=== PATIENT | male | born 1950 | race Caucasian/White ===

== ENCOUNTER 2019-05-25 06:17 | Inpatient (IN) | payer OTHER ==
[~2019-05-25] VITALS: Ht 185.4 cm; Wt 95.3 kg
[2019-05-25 06:22] VITALS: BP 98/62
--- NOTE | 2019-05-25 06:22 | NUR ---
PT TAKEN TO BED 5
--- NOTE | 2019-05-25 06:27 | NUR ---
Dr. Pickens evaluating patient.
--- NOTE | 2019-05-25 06:30 | NUR ---
68 Y/O M PRESENTED TO ED WITH C/O DIFFICULTY URINATING SINCE LAST NIGHT. 08/18 PAIN. PER PT " I TOOK MY TERAZOSIN AND HAD SOME BACARDI TOO. I THINK THAT WHAT CAUSED THIS." BLADDER MILDLY DISTENDED. PT FEELS URGE TO VOID BUT UNABLE TO. PT REPORTED HEMATURIA. ERMD NOTIFIED. WILL CONTINUE TO MONITOR.
--- NOTE | 2019-05-25 06:40 | NUR ---
17F NGUYEN INSERTED WITH STERILE TECHNIQUE. DURING INSERTION RESISTANCE WAS FELT. RED TINGED URINE NOTED. BLOOD NOTED IN CATHERER. NGUYEN IRRIGATED, 2 SMALL BLOOD CLOTS CAME OUT. ERMD MADE AWARE.
--- NOTE | 2019-05-25 07:15 | NUR ---
REPORT GIVEN TO MAYA SCHUMACHER. TRANSFER OF CARE AT THIS TIME.
[2019-05-25] MEDS ORDERED: KETOROLAC 30 MG/ML VIAL IVP ONE (07:25)
[2019-05-25] MEDS ORDERED: LIDOCAINE VISCOUS 2% 20 ML UDC PO ONE (07:30)
[2019-05-25] MEDS ORDERED: LIDOCAINE VISCOUS 2% 20 ML UDC ONE (07:34)
[2019-05-25 07:44] LABS: EOSINOPHILS # (AUTO) 0.5 K/uL (0-0.4); EOSINOPHILS % (AUTO) 10.6 % (0.0-4.0); HEMOGLOBIN 14.9 g/dL (12.0-18.0); LYMPHOCYTES # (AUTO) 1.1 K/uL (2.0-11.5); LYMPHOCYTES % (AUTO) 23.6 % (20.5-51.1); MEAN CORPUSCULAR HEMOGLOBIN 31 pg (27-31); MEAN CORPUSCULAR HGB CONC 33 g/dL (33-37); MEAN CORPUSCULAR VOLUME 92.5 fL (80-94); MONOCYTES # (AUTO) 0.3 K/uL (0.8-1.0); MONOCYTES % (AUTO) 7.5 % (1.7-9.3); NEUTROPHILS # (AUTO) 2.6 K/uL (1.8-7.7); NEUTROPHILS % (AUTO) 57.3 % (42.2-75.2); PLATELET COUNT (AUTO) 196 K/uL (140-450); RED BLOOD CELL COUNT(AUTO) 4.86 MIL/uL (4.20-6.10); RED CELL DISTRIBUTION WIDTH 14.3 % (11.6-13.7); WHITE BLOOD COUNT (AUTO) 4.6 K/uL (4.8-10.8)
--- NOTE | 2019-05-25 07:46 | NUR ---
INSERTED NGUYEN USING THE COUDER N16 FR USING LIDOCAINE ORDERED. NO URINE RETURN . SLIGHT BLEEDING FROM THE PENILE REGION AFTER INSERTION OF THE NGUYEN CATHETER. GAVE TORADOL IVP ORDERED. PT STILL C/O PAIN. WILL CONTINUE TO MONITOR PT.
[2019-05-25 07:49] LABS: APPEARANCE,URINE CLOUDY (CLEAR); BILIRUBIN,URINE NEGATIVE (NEGATIVE); BLOOD, URINE 3+ (NEGATIVE); COLOR,URINE AMBER (YELLOW); LEUKOCYTE ESTERASE ,URINE NEGATIVE (NEGATIVE); NITRITE, URINE NEGATIVE (NEGATIVE); PH,URINE 5.5 (5.0-9.0); UGLUCOSE NEGATIVE (NEGATIVE)
[2019-05-25] MEDS ORDERED: METOCLOPRAMIDE 10 MG/2 ML INJ VIAL IVP ONE (07:55)
[2019-05-25] MEDS ORDERED: MORPHINE SULFATE 4 MG/ML SYR IVP ONE (07:55)
--- NOTE | 2019-05-25 08:09 | NUR ---
coude bell catheter removed. Dr. Daniel ordering bell catheter to be re-inserted.
[2019-05-25 08:10] LABS: ANION GAP 12.9 (8-16); CARBON DIOXIDE 25.8 mmol/L (21-32); POTASSIUM 3.7 mmol/L (3.5-5.1)
[2019-05-25] MEDS ORDERED: LIDOCAINE 2% 100 MG/5 ML UJET TP ONE (08:10)
[2019-05-25] MEDS ORDERED: LIDOCAINE 2% 100 MG/5 ML UJET TP SCH (08:10)
[2019-05-25 08:13] LABS: PROTHROMBIN TIME 11.2 secs (10.8-13.4)
[2019-05-25 08:15] LABS: ALBUMIN 3.9 g/dL (3.4-5.0); TOTAL BILIRUBIN 0.4 mg/dL (0.0-1.0)
[2019-05-25 08:35] LABS: RBC,URINE TOO NUMEROUS TO COUN /HPF (0-5); WBC,URINE 0-5 /HPF (0-5)
--- NOTE | 2019-05-25 08:36 | NUR ---
INSERTED NGUYEN CATHETER ORDERED WITH LIDOCAINE. SMALL AMOUT OF BLOODY VISCOUS OUTPUT RECEIVED IN THE TUBE. PT STATES PAIN WHILE PEEING. STARTED [address] NOYOLA MADE AWARE. PT WENT WITH CT. WILL CONTINUE TO MONITOR PT.
[2019-05-25 09:20] LABS: MAGNESIUM 1.7 mg/dL (1.8-2.4)
--- NOTE | 2019-05-25 09:25 | NUR ---
INSERTED 14 FR CAUDE NGUYEN , RETRURN OF THE URINE 200 ML AT THIS TIME. PT STATES FEELING COMFORTABLE, EASE WITH PAIN. URINE SAMPLE COLLECTED FOR UDS. WILL CONTINUE TO MONITOR PT.
--- NOTE | 2019-05-25 09:41 | NUR ---
Dr. Daniel re-evaluating patient at bedside.
[2019-05-25 09:59] LABS: BARBITURATE, URINE NEG. ng/ml (NEG <=200); BENZODIAZEPINE, URINE NEG. ng/mL (NEG <=200); CANNABINOID, URINE NEG. ng/mL (NEG <=50); COCAINE, URINE NEG. ng/mL (NEG <=300); OPIATE, URINE NEG. ng/mL (NEG <=2000); PHENCYCLIDINE SCREEN,URINE NEG. ng/mL (NEG <=25)
--- NOTE | 2019-05-25 10:08 | NUR ---
PT LYING COMFORTABLY IN HIS BED, TOLERABLE PAIN. WILL CONTINUE TO MONITOR PT.
--- NOTE | 2019-05-25 10:28 | NUR ---
CHECKED ON PT. RESTING COMFORTABLY IN HIS BED.
[2019-05-25] MEDS ORDERED: FAMOTIDINE 20 MG/2 ML VIAL IV PRN (10:55)
[2019-05-25] MEDS ORDERED: HYDROcodone/APAP 7.5/325 MG 1 TAB PO PRN (10:55)
[2019-05-25] MEDS ORDERED: ONDANSETRON 4 MG/2 ML VIAL IM/IVP PRN (10:55)
[2019-05-25] MEDS ORDERED: ACETAMINOPHEN 325 MG TAB PO PRN (10:55)
[2019-05-25] MEDS ORDERED: TERA1CAP7 PO ×2 (10:57→13:49)
--- NOTE | 2019-05-25 10:58 | NUR ---
Pt states he takes Terazosin but does not recall the dosages but states he will find out and let us know as soon as possible.
[2019-05-25] MEDS ORDERED: DOCUSATE SODIUM 100 MG GELCAP PO PRN (11:00)
[2019-05-25] MEDS ORDERED: MEDICATION REC. PHARMACY CONS. 1 EA MISC MC PRN (11:05)
[2019-05-25] MEDS ORDERED: MAG SULF 2000 MG/WATER PREMIX 50 ML IV ONE (11:05)
[2019-05-25 11:35] VITALS: BP 119/73
--- NOTE | 2019-05-25 11:35 | NUR ---
RECEIVED BEDSIDE REPORT FROM COLLEGE PRESIDENT ENDY. PT STABLE, AWAKE, ALERT AND ORIENTED X4. NO SIGNS OF DISTRESS NOTED. DENIES PAIN OR SOB. PT AMBULATED FROM THE GURNEY TO THE BED WITH STEADY GAIT. NO REDNESS, SWELLING, OR INFLAMMATION NOTED ON IV SITE. CALL NEGRETE WITHIN REACH. BED IN LOWEST POSITION. SAFETY MEASURES IN PLACE. PLAN OF CARE REVIEWED.
--- NOTE | 2019-05-25 11:41 | NUR ---
Patient will be admitted to care of DR. PIKE. Admited to [facility] FLOOR. Will go to room 119A. Belongings list completed. Report to MAYA VIDAL. PT SATBLE AT THE TIME OF TRANSFER.
[2019-05-25] MEDS ORDERED: TAMSULOSIN 0.4 MG CAP PO SCH (12:30)
[2019-05-25 13:10] LABS: FREE T4 (FREE THYROXINE) 0.92 ng/dL (0.76-1.46); PHOSPHORUS 2.8 mg/dL (2.5-4.9); THYROID STIMULATING HORMONE 5.86 uIU/mL (0.34-3.74)
--- NOTE | 2019-05-25 13:20 | NUR ---
ADMINISTERED SCHEDULED MEDICATIONS, PT TOLERATED WELL. NO OTHER NEEDS AT THIS TIME.
[2019-05-25] MEDS ORDERED: FINASTERIDE 5 MG TAB PO SCH (14:00)
--- NOTE | 2019-05-25 14:24 | NUR ---
ADMINISTERED SCHEDULED PROSCAR. DISCONTINUED NGUYEN CATHETER PER MD ORDER. 300ML OF DARK RED URINE NOTED. PT TOLERATED WELL. NO OTHER NEEDS AT THIS TIME. FAMILY AT THE BEDSIDE.
[2019-05-25] MEDS ORDERED: MORPHINE SULFATE 2 MG/ML SYR IVP PRN (15:10)
[2019-05-25 16:00] VITALS: BP 121/77
--- NOTE | 2019-05-25 16:10 | NUR ---
VITAL SIGNS TAKEN, PT STABLE. NO SIGNS OF DISTRESS NOTED.
[2019-05-25] MEDS: PHENAZOPYRIDINE 100 MG TAB PO SCH (17:17)
--- NOTE | 2019-05-25 17:25 | NUR ---
ADMINISTERED SCHEDULED MEDICATIONS, PT TOLERATED WELL. NO OTHER NEEDS AT THIS TIME.
[2019-05-25 17:40] LABS: BASOPHILS % (AUTO) 0.8 % (0.0-2.0); EOSINOPHILS # (AUTO) 0.2 K/uL (0-0.4); EOSINOPHILS % (AUTO) 4.4 % (0.0-4.0); HEMATOCRIT 41.7 % (36-52); HEMOGLOBIN 13.6 g/dL (12.0-18.0); LYMPHOCYTES # (AUTO) 0.9 K/uL (2.0-11.5); LYMPHOCYTES % (AUTO) 18.8 % (20.5-51.1); MEAN CORPUSCULAR HEMOGLOBIN 31 pg (27-31); MEAN CORPUSCULAR HGB CONC 33 g/dL (33-37); MEAN CORPUSCULAR VOLUME 93.8 fL (80-94); MONOCYTES # (AUTO) 0.4 K/uL (0.8-1.0); MONOCYTES % (AUTO) 9.3 % (1.7-9.3); NEUTROPHILS # (AUTO) 3.2 K/uL (1.8-7.7); NEUTROPHILS % (AUTO) 66.7 % (42.2-75.2); PLATELET COUNT (AUTO) 167 K/uL (140-450); RED BLOOD CELL COUNT(AUTO) 4.45 MIL/uL (4.20-6.10); RED CELL DISTRIBUTION WIDTH 14.1 % (11.6-13.7); WHITE BLOOD COUNT (AUTO) 4.8 K/uL (4.8-10.8)
--- NOTE | 2019-05-25 18:05 | NUR ---
PT IS EATING DINNER, FAMILY AT THE BEDSIDE.
--- NOTE | 2019-05-25 18:25 | NUR ---
PT URINATED DARK RED URINE ON THE BED.
--- NOTE | 2019-05-25 19:20 | NUR ---
ENDORSED PT TO RN FEBRUARY FOR CONTINUITY OF CARE. PT STABLE.
--- NOTE | 2019-05-25 19:21 | NUR ---
RECEIVED REPORT FROM AM NURSE. PT SITTING UP IN BED WATCHING TV. AWAKE, ALERT AND ORIENTED X4. VISIBLE CHEST RISE AND FALL WITH NO NOTED DISTRESS. PT RIGHT FOREARM 20G INTACT AND INFUSING WELL. FAMILY AT BEDSIDE. URINAL AT BEDSIDE. 50CC OF DARK RED URINE IN URINAL AND RED URINE ON BEDDING AND FLOOR. PT BROUGHT NEW, CLEAN URINAL. SWEATBAND DRUMMER CHANGED BEDDING. HOUSE KEEPING CALLED TO CLEAN FLOOR. SAFETY PRECAUTIONS IN PLACE. CALL LIGHT WITHIN REACH.
[2019-05-25 20:02] VITALS: BP 120/70
[2019-05-25] MEDS: TAMSULOSIN 0.4 MG CAP PO SCH (20:41)
[2019-05-25] MEDS: TERAZOSIN 1 MG CAP PO SCH (20:41)
--- NOTE | 2019-05-25 20:41 | NUR ---
MEDICATIONS ADMINISTERED. PT TOLERATED WELL.
--- NOTE | 2019-05-25 22:30 | NUR ---
PT CALLED TO SPEAK WITH NURSE. PT ASKED TO MOVE ROOMS. PT STATED THAT HIS NEIGHBOR, [address], IS "COUGHING AND I DON'T WANT TO GET SICK." PT MOVED TO ROOM 111B.
[2019-05-26] VITALS: BP 112/68
--- NOTE | 2019-05-26 | NUR ---
VITALS TAKEN. PT SLEEPING BUT AWAKEN BY NAME. NO C/O DISCOMFORT. CALL LIGHT WITHIN REACH.
--- NOTE | 2019-05-26 02:43 | NUR ---
ROUNDED ON PT. PT SLEEPING, VISIBLE CHEST RISE AND FALL. NO VISIBLE SIGNS OF DISTRESS.
[2019-05-26 04:09] VITALS: BP 123/78
--- NOTE | 2019-05-26 07:30 | NUR ---
ENDORSED TO AM NURSE. PT IN STABLE CONDITION.
[2019-05-26 08:00] VITALS: BP 123/83
--- NOTE | 2019-05-26 08:15 | NUR ---
PATIENT AAOX4, ABLE TO FOLLOW COMMANDS AND MAKE NEEDS KNOWN. EDUCATED ON MEDICATIONS, VERBALIZES UNDERSTANDING. NO SIGNS OF DISTRESS. VITALS STABLE, AFEBRILE, DENIES PAIN
[2019-05-26] MEDS ORDERED: TAMSULOSIN 0.4 MG CAP PO SCH (08:30)
--- NOTE | 2019-05-26 09:02 | NUR ---
PATIENT HAS BEEN SCREENED AND CATEGORIZED LOW NUTRITION RISK. PATIENT WILL BE SEEN WITHIN 7 DAYS OF ADMISSION. 05/31/[address]
[2019-05-26] MEDS: TAMSULOSIN 0.4 MG CAP PO SCH ×2 (09:28→20:38)
[2019-05-26] MEDS: FINASTERIDE 5 MG TAB PO SCH (09:28)
[2019-05-26] MEDS: PHENAZOPYRIDINE 100 MG TAB PO SCH ×3 (09:45→17:17)
[2019-05-26 09:58] LABS: BASOPHILS % (AUTO) 0.9 % (0.0-2.0); EOSINOPHILS # (AUTO) 0.5 K/uL (0-0.4); EOSINOPHILS % (AUTO) 10.9 % (0.0-4.0); HEMATOCRIT 44.1 % (36-52); HEMOGLOBIN 14.4 g/dL (12.0-18.0); LYMPHOCYTES # (AUTO) 0.8 K/uL (2.0-11.5); LYMPHOCYTES % (AUTO) 17.8 % (20.5-51.1); MEAN CORPUSCULAR HEMOGLOBIN 31 pg (27-31); MEAN CORPUSCULAR HGB CONC 33 g/dL (33-37); MEAN CORPUSCULAR VOLUME 93.5 fL (80-94); MONOCYTES # (AUTO) 0.3 K/uL (0.8-1.0); MONOCYTES % (AUTO) 6.6 % (1.7-9.3); NEUTROPHILS % (AUTO) 63.8 % (42.2-75.2); PLATELET COUNT (AUTO) 189 K/uL (140-450); RED BLOOD CELL COUNT(AUTO) 4.72 MIL/uL (4.20-6.10); RED CELL DISTRIBUTION WIDTH 14.6 % (11.6-13.7); WHITE BLOOD COUNT (AUTO) 4.6 K/uL (4.8-10.8)
[2019-05-26 10:12] LABS: PHOSPHORUS 2.5 mg/dL (2.5-4.9)
[2019-05-26 12:00] VITALS: BP 127/72
--- NOTE | 2019-05-26 13:16 | NUR ---
VITALS STABLE, NO COMPLAINTS AT THIS TIME.
--- NOTE | 2019-05-26 14:22 | NUR ---
ADMINISTERED ROCEPHIN IM, PATIENT TOLERATED WELL. MOTHER AT BEDSIDE, VITAL SIGNS STABLE. Addendum: 05/26/19 at 1423 by Manjeet Smith RN WRONG PATIENT
[2019-05-26 15:16] LABS: PSA FREE 2.83 ng/mL
[2019-05-26 16:00] VITALS: BP 132/75
--- NOTE | 2019-05-26 16:19 | NUR ---
PATIENT'S SON AT BEDSIDE, NO SIGNS OF DISTRESS NOTED
--- NOTE | 2019-05-26 17:21 | NUR ---
PROVIDED PATIENT WITH PRUNE JUICE, STATES HE HASN'T HAD A BM AND WANTS PRUNE JUICE TO HELP HIM
--- NOTE | 2019-05-26 19:20 | NUR ---
RECEIVED REPORT FROM AM NURSE. PT AWAKE, ALERT AND ORIENTED X4. ABLE TO VERBALIZE NEEDS AND FOLLOW COMMANDS. VISIBLE CHEST RISE AND FALL WITH NO VISIBLE DISTRESS ON ROOM AIR. RIGHT FOREARM 20G INTACT AND PATENT. PT FAMILY AT BEDSIDE. NO C/O DISCOMFORT. SAFETY MEASURES IN PLACE. URINAL AT BEDSIDE. CALL LIGHT WITHIN REACH.
[2019-05-26 20:00] VITALS: BP 114/74
--- NOTE | 2019-05-26 20:01 | NUR ---
* ST NOTE * Pt seen at bedside w/son present. Pt alert, cooperative and engaged, reporting no c/o pain at this time. Pt also consenting to evaluation w/son present. Bedside dysphagia and oral mechanism exams completed. See evaluation report for further details. Pt tolerating 4/4 alternating PO trials of regular solid dinner meal as well as 4/4 alternating PO trials of thin liquid prune juice via a cup, all w/o s/s of aspiration or choking. Pt and son education completed re: aspiration precautions and safe swallow compensatory strategies pt and caregivers could utilize to aid pt w/swallow function, w/pt and caregiver/son verbalizing understanding and agreement w/clinician's recommendations. It is thus recommended pt's PO diet consistency remain as regular solids w/thin liquids w/aspiration precautions in place. No further ST follow up recommended at this time. Pt, caregiver/son, & caregiver/Nsg Socorro education completed re: results of evaluation; benefits of abiding by aspiration precautions; and prognosis for improvement; w/pt, son & Nsg [place] verbalizing understanding and agreement w/clinician's recommendations. Recommend: - PO DIET CONSISTENCY OF REGULAR SOLIDS W/THIN LIQUIDS for all meals - WHOLE PILL MEDICATION ADMINISTRATION - Pt can self-feed - MAINTAIN ASPIRATION PRECAUTIONS DURING PT'S PO INTAKE - CUE/REMIND PT TO SIT UP AT 70-90 DEGREE ANGLE DURING PO INTAKE; EAT/DRINK SLOWLY; ALTERNATE BTWN SOLIDS & LIQUIDS; AND TAKE SMALL BITES/SIPS No further ST follow up recommended at this time. NOMS Level 1
[2019-05-26] MEDS: TERAZOSIN 1 MG CAP PO SCH (20:38)
--- NOTE | 2019-05-26 20:38 | NUR ---
MEDICATIONS ADMINISTERED. PT TOLERATED WELL. PT STATED THAT HE HAD A BM. EMPTIED 125CC OF ORANGE URINE FROM URINAL. WILL CONTINUE TO MONITOR.
--- NOTE | 2019-05-26 21:30 | NUR ---
PT USED CALL LIGHT FOR NURSE. PT BROUGHT JUICE AND CLEAN URINAL REQUESTED.
--- NOTE | 2019-05-27 | NUR ---
VITALS TAKEN. PT SLEEPING LEFT LATERAL POSITION. PT EASILY AWAKEN. VISIBLE CHEST RISE AND FALL. CALL LIGHT WITHIN REACH.
[2019-05-27 00:12] VITALS: BP 104/60
[2019-05-27 04:00] VITALS: BP 142/84
--- NOTE | 2019-05-27 04:00 | NUR ---
VITALS TAKEN. PT URINAL EMPTIED 275CC OF ORANGE URINE.
--- NOTE | 2019-05-27 05:15 | NUR ---
PT ACCIDENTLY PULLED OUT IV. NEW ACCESS STARTED IN RIGHT FOREARM 22G.
--- NOTE | 2019-05-27 07:00 | NUR ---
ENDORSED TO AM NURSE FOR CONTINUITY OF CARE. PT IN STABLE CONDITION.
--- NOTE | 2019-05-27 07:01 | NUR ---
RECEIVED BEDSIDE REPORT FROM NIGHT NURSE. PT HAS A RIGHT FOREARM IV THAT IS SALINE LOCKED AND ASYMPTOMATIC AND PATENT. PT BREATHING UNLABORED AOX4. PT DENIES PAIN OR DISCOMFORT. ALL SAFETY MEASURES IN PLACE AND CALL LIGHT WITHIN REACH.
[2019-05-27 08:00] VITALS: BP 142/99
[2019-05-27] MEDS ORDERED: FINA5TAB1 PO (08:39)
[2019-05-27] MEDS ORDERED: TAMS0.4C96 PO (08:39)
[2019-05-27] MEDS: TAMSULOSIN 0.4 MG CAP PO SCH (08:47)
[2019-05-27] MEDS: PHENAZOPYRIDINE 100 MG TAB PO SCH (08:47)
[2019-05-27] MEDS: FINASTERIDE 5 MG TAB PO SCH (08:47)
--- NOTE | 2019-05-27 08:48 | NUR ---
PT RESTING IN BED, ADMINISTERED MEDICATIONS NO DISTRESS BREATHING UNLABORED STATES NO PAIN OR DIFFICULTY URINATING.
--- NOTE | 2019-05-27 09:23 | NUR ---
PT RESTING IN BED NO DISTRESS.
--- NOTE | 2019-05-27 09:41 | NUR ---
NOTIFIED DR BURTON OF PT 0800 TELEMETRY STRIP SHOWING UNCONTROLLED A FIX AT 142 BEATS PER MINUTE HEARTRATE.
--- NOTE | 2019-05-27 10:10 | NUR ---
INFORMED PT OF PENDING EKG AND PLANS TO DISCHARGE AFTER IF READINGS COME BACK WNL PER INSTRUCTIONS OF DR BURTON.
[2019-05-27] MEDS ORDERED: AMIO200T5 PO ×2 (10:56)
--- NOTE | 2019-05-27 11:54 | NUR ---
PT DISCHARGE PAPERWORK REVIEWED AND SIGNED BY PATIENT NO QUESTIONS AT THIS TIME. REVIEWED MEDICATIONS AND PT HAS ALL BELONGINGS WITH HIM. PT IV REMOVED WITH CATHETER TIP INTACT AND ID BANDS REMOVED. PT REFUSES WHEELCHAIR AND DESIRES TO WALK OUT OF HOSPITAL BY HIMSELF AND IS DRIVING HIMSELF HOME WITH HIS OWN VEHICLE IN PARKING LOT. PT STABLE CONDITION AT THIS TIME.
== END 2019-05-27 11:45 | disposition home or self-care (01) | DRG 700 ==
LOC: MED 06:17 → MTU 10:59
PROVIDERS: ADMIT General Practice; ATTEND General Practice
DX: T83.028A Displacement of other urinary catheter, initial encounter (principal); N40.1 Benign prostatic hyperplasia with lower urinary tract symptoms; R33.9 Retention of urine, unspecified; R33.8 Other retention of urine; R31.0 Gross hematuria; K57.30 Diverticulosis of large intestine without perforation or abscess without bleeding; J98.4 Other disorders of lung; Y65.8 Other specified misadventures during surgical and medical care; Z90.49 Acquired absence of other specified parts of digestive tract; Z98.42 Cataract extraction status, left eye; Z98.41 Cataract extraction status, right eye; Z87.891 Personal history of nicotine dependence; Y92.89 Other specified places as the place of occurrence of the external cause
CPT/HCPCS: 36415; 51702; 71045; 76770; 80048; 80053; 80305; 81001; 82040; 82150; 83036; 83605; 83690; 83735; 83880; 84100; 84153; 84154; 84439; 84443; 84550; 85025; 85610; 85730; 87081; 87086; 92610; 93005; 96374; 96375; 99285; G0482; J0696; J1885; J2270; J2765; J3475; J7030; J7060; Q0092